=== PATIENT | female | born 1985 | race Caucasian/White ===

== ENCOUNTER 2021-08-28 16:02 | Emergency (ER) | payer MEDICAID, SELFPAY ==
[2021-08-28 16:05] VITALS: BP 129/73; PULSE 74; RESP 18; TEMP 36.6; O2SAT 100
--- NOTE | 2021-08-28 16:19 | ED.GENADUL_ITS ---
Discharge Plan Disposition Patient Disposition: HOME Condition: Stable Discharge Details Clinical Impression: Rash Primary Care Provider: None,None ED Provider: Carl Kat Home Meds and New Rx's Prescriptions: New hydrocortisone 2.5 % cream 1 applic topical TID PRNQty: 30 RF: 0 No Action No Known Home Meds RF: 0 Discharge Instructions Additional Instructions: your rash seems consistent with a irritant or contact dermatitis use the hydrocortisone and follow up with a primary care provider within a week especially if rash continues return to the emergency department if you feel more ill, have severe worsening pain or fevers. Medical Decision Making 36 yo female who denies chronic medical problems comes in with itching rash on both wrists/hands for 2 weeks. 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 The rash was initially red but then became crusted. She denies fevers, severe pain. On both radial surfaced of her wrist and posterior wrist she has mild erythema with some blistering and has no hand lesions. She has mild erythema as well of the left neck that's about 4-5cm in diameter. Her exam is consistent with likely contact or irritant dermatitis. Will start her on topical steroids and have her f/u with pcp. no findings on exam to suggest infectious etiology such as cellulitis. Differential Diagnosis Differential Diagnosis: contact dermatitis, psoriasis HPI General Mode of arrival: ambulatory . Date/Time Provider Initiated Documentation: 08/28/21 16:10 . Limitations to Documentation: no limitations . Information obtained by: patient . History of Present Illness 36 year old F presents to the emergency department with the chief complaint of rash, described as moderate, Patient extremity. Patient started experiencing this week(s) (2) and it has been constant. No relieving factors improve symptom(s), No exacerbating factors reported . Related Data Home Medications Medication Instructions Recorded Confirmed Unknown [No Known Home Meds] 08/28/21 08/28/21 hydrocortisone 1 applic TOPICAL TID PRN #30 g 08/28/21 Previous Rx's Medication Instructions Recorded hydrocortisone 1 applic TOPICAL TID PRN #30 g 08/28/21 Allergies Allergy/AdvReac Type Severity Reaction Status Date / Time Bleach (Sodium Hypochlorite) Allergy Unverified 08/28/21 16:07 General Stated Complaint: RashLesion GERMAN: 4 Review of Systems All systems reviewed & are unremarkable except as noted in HPI and below Constitutional Constitutional: Denies chills, Denies fever(s) and Denies weakness Cardiovascular Cardiovascular: Denies chest pain and Denies dyspnea Respiratory Respiratory: Denies cough and Denies dyspnea Gastrointestinal Gastrointestinal: Denies abdominal pain, Denies nausea and Denies vomiting Musculoskeletal Musculoskeletal: Denies joint swelling Neurologic Neurologic: Denies weakness PFSH All Active Problems (Updated 08/28/21 @ 16:23 by Carl Kat MD) Rash (Acute) Social History Smoking/Tobacco Use Status: Never Smoking risk assessment performed?: Yes Alcohol Intake: never Substance use type: does not use Do you feel safe at home: Yes Do you feel safe in your relationship?: Yes Exam Const General: no acute distress Orientation: alert HENMT Head: normal to inspection Ears: external ears normal General nose exam: external nose normal Mouth: moist mucous membranes Eyes General: appearance normal, both eyes and all related structures Neck Neck: normal visual inspection Resp Effort & Inspection: normal respiratory effort and able to speak in complete sentences Cardio Rate: regular rate Skin General skin exam: elasticity normal Neuro General: patient alert and patient oriented x3 Extrem General: normal to inspection Psych Mental Status: mental status grossly normal Course Vital Signs Vital signs: Vital Signs Temperature 36.6 C 08/28/21 16:05 Pulse 74 08/28/21 16:05 Respiratory Rate 18 08/28/21 16:05 Blood Pressure 129/73 08/28/21 16:05 Pulse Oximetry 100 08/28/21 16:05 Temperature 36.6 C 08/28/21 16:05 Temperature Source Temporal Artery Scan 08/28/21 16:05 Pulse 74 08/28/21 16:05 Respiratory Rate 18 08/28/21 16:05 Respiratory Effort Non-Labored 08/28/21 16:08 Blood Pressure 129/73 08/28/21 16:05 Pulse Oximetry 100 08/28/21 16:05 Pain Level 0 08/28/21 16:05
--- NOTE | 2021-08-28 16:25 | NUR.NOTE ---
Nursing Note:CARE MANAGEMENT GIVEN PT INFO FOR RASH IN A WEEK AND TO ESTABLISH CARE. CHUCHO, ED
== END 2021-08-28 16:45 | disposition home or self-care (01) ==
PROVIDERS: Emergency Provider Emergency Medicine
DX: R21 Rash and other nonspecific skin eruption (principal)
CPT/HCPCS: 99283

== ENCOUNTER 2021-09-03 23:16 | Emergency (ER) | payer MEDICAID, SELFPAY ==
[2021-09-03 23:22] VITALS: BP 122/81; PULSE 76; RESP 18; TEMP 36.3; O2SAT 99
--- NOTE | 2021-09-03 23:34 | ED.GENADUL_ITS ---
Discharge Plan Disposition Patient Disposition: HOME Condition: Stable Discharge Details Clinical Impression: Rash Primary Care Provider: None,None ED Provider: Carl Kat Home Meds and New Rx's Prescriptions: New prednisone 20 mg tablet See Rx Instructions .ROUTE .COMPLEX Qty: 21 RF: 0 Discontinued hydrocortisone 2.5 % cream 1 applic topical TID PRNQty: 30 RF: 0 Discharge Instructions Additional Instructions: continue to take the benadryl as needed for itching, follow dosing instruction on packaging if rash doesn't improve with the steroid follow up with dermatology if you have difficulty breathing, fevers, feel more ill or have lesions in your mouth or lips return to the emergency department for reevaluation Medical Decision Making 36 yo female with hx of ITP comes in with continued rash on arms and now torso. 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 She was prescribed topical hydrocortisone but despite this has continued. She now has mildly red patches on her upper chest, and continues to have red scaly rash on posterior wrists. No fevers, chills, dyspnea, gi symptoms and no mucous membrane lesions. No other household member with similar symptoms so doubt scabies. Her rash does seem consistent with contact dermatitis and vs atopic dermatitis. No findings to suggest anaphylaxis or sjs/ten. No rash over elbow or other joints other than wrist so feel psoriasis is less likely. Will try oral steroids and advised to follow up with derm if symptoms continue, return precautions given Differential Diagnosis Differential Diagnosis: eczema, atopic dermatitis, psoriasis HPI General Mode of arrival: ambulatory . Date/Time Provider Initiated Documentation: 09/03/21 23:17 . Limitations to Documentation: no limitations . Information obtained by: patient . History of Present Illness 36 year old F presents to the emergency department with the chief complaint of rash, described as moderate, and is localized to the left, right and upper extremity. Patient started experiencing this week(s) (3) and it has been constant. No relieving factors improve symptom(s), No exacerbating factors reported . Patient notes denies fever/chills. Related Data Home Medications Medication Instructions Recorded Confirmed prednisone See Rx Instructions .ROUTE 09/03/21 .COMPLEX #21 tab Previous Rx's Medication Instructions Recorded prednisone See Rx Instructions .ROUTE 09/03/21 .COMPLEX #21 tab Allergies Allergy/AdvReac Type Severity Reaction Status Date / Time Bleach (Sodium Hypochlorite) Allergy Unverified 08/28/21 16:07 General Stated Complaint: RashLesion GERMAN: 4 Review of Systems All systems reviewed & are unremarkable except as noted in HPI and below Constitutional Constitutional: Denies chills, Denies fever(s) and Denies weakness Cardiovascular Cardiovascular: Denies chest pain and Denies dyspnea Respiratory Respiratory: Denies cough and Denies dyspnea Gastrointestinal Gastrointestinal: Denies abdominal pain, Denies nausea and Denies vomiting Genitourinary Genitourinary: Denies dysuria Musculoskeletal Musculoskeletal: Denies joint swelling Neurologic Neurologic: Denies weakness PFSH All Active Problems (Updated 09/03/21 @ 23:38 by Carl Kat MD) Rash (Acute) Social History Smoking/Tobacco Use Status: Never Smoking risk assessment performed?: Yes Alcohol Intake: never Drug use: Never Substance use type: does not use Do you feel safe at home: Yes Do you feel safe in your relationship?: Yes Exam Const General: no acute distress Orientation: alert HENMT Head: normal to inspection Ears: external ears normal General nose exam: external nose normal Mouth: moist mucous membranes Eyes General: appearance normal, both eyes and all related structures Neck Neck: normal visual inspection Resp Effort & Inspection: normal respiratory effort and able to speak in complete sentences Cardio Rate: regular rate Skin General skin exam: elasticity normal and dry skin Neuro General: patient alert and patient oriented x3 Extrem General: normal to inspection Psych Mental Status: mental status grossly normal Course Vital Signs Vital signs: Vital Signs Temperature 36.3 C L 09/03/21 23:22 Pulse 76 09/03/21 23:22 Respiratory Rate 18 09/03/21 23:22 Blood Pressure 122/81 09/03/21 23:22 Pulse Oximetry 99 09/03/21 23:22 Temperature 36.3 C L 09/03/21 23:22 Temperature Source Temporal Artery Scan 09/03/21 23:22 Pulse 76 09/03/21 23:22 Respiratory Rate 18 09/03/21 23:22 Respiratory Effort 09/03/21 23:25 Blood Pressure 122/81 09/03/21 23:22 Blood Pressure Position Sitting 09/03/21 23:22 Pulse Oximetry 99 09/03/21 23:22 Oxygen Delivery Method Room Air 09/03/21 23:22 Oxygen Flow Rate 0 09/03/21 23:22 Pain Level 3 09/03/21 23:22
[2021-09-03] MEDS: predniSONE 20 MG TAB 60 MG PO (23:36)
[2021-09-03] MEDS: diphenhydrAMINE 25 MG CAP PO (23:36)
== END 2021-09-03 23:44 | disposition home or self-care (01) ==
PROVIDERS: Emergency Provider Emergency Medicine
DX: R21 Rash and other nonspecific skin eruption (principal)
CPT/HCPCS: 99283; J7512

== ENCOUNTER 2025-06-03 19:25 | Emergency (ER) | payer MEDICAID, SELFPAY ==
[2025-06-03 19:29] VITALS: BP 122/92; PULSE 77; RESP 19; TEMP 36.9; O2SAT 98
[2025-06-03] MEDS: Prochlorperazine 10 MG/2 ML VIAL IVP (20:37)
[2025-06-03] MEDS: Normal Saline 1,000 ML 1000 ML IV (20:37)
[2025-06-03] MEDS: Ketorolac 15 MG/ML VIAL 7.5 MG IVP (20:37)
[2025-06-03] MEDS: Dexamethasone 4 MG/ML VIAL IVP (21:25)
[2025-06-03 21:32] VITALS: BP 122/73; PULSE 72; RESP 19; TEMP 36.3; O2SAT 97
--- NOTE | 2025-06-03 21:53 | ED.GENADUL_ITS ---
Discharge Plan Disposition Patient Disposition: Home Condition: Stable Discharge Details Clinical Impression: Headache Primary Care Provider: None,None ED Provider: Gretel Bill Home Meds and New Rx's Prescriptions: New prochlorperazine maleate [Compazine] 10 mg tablet 10 mg PO Q6H PRNQty: 10 0RF Continued prednisone 20 mg tablet See Rx Instructions .ROUTE .COMPLEX Qty: 21 0RF Rx Instructions: 60mg daily for days 1-4, 40mg days 5-7, 20mg days 8-10 ibuprofen 800 mg tablet 800 mg PO Q8H PRN Discharge Instructions Instructions: Headache, Adult ED Additional Instructions: Please take Motrin and Tylenol as needed for headache The Compazine can help with migraine headaches, it is typically used for nausea and vomiting but can work really well for headaches Please return should you develop return of headache worsening symptoms, fever, chills, or should any new concerns arise Discharge Data Discharge Date/Time-TO BE ENTERED AT DEPARTURE: 06/03/25 21:33 HPI General Date/Time Provider Initiated Documentation: 06/03/25 19:27 . HPI Narrative: This 40-year-old female with history of migraine headaches presents with report of headache which started 24 hours prior to arrival. She states typically her headaches resolved with ibuprofen and Tylenol. She denies any fever chills or stiff neck. She denies any strength or sensation changes to her extremities. She states that headache wraps around her head denies any visual changes. Does have photophobia and phonophobia. Has attempted Motrin and Tylenol at home per patient. Denies any chance of . Denies any recent head injury. Related Data Home Medications ?Medication ?Instructions ?Recorded ?Confirmed prednisone 20 mg tablet See Rx Instructions .Route 1 11/04/20 06/03/25 .COMPLEX #21 tabs ibuprofen 800 mg tablet 800 mg PO Q8H PRN 06/03/25 0 06/03/25 prochlorperazine maleate 10 mg 10 mg PO Q6H PRN #10 ta bs 06/03/25 tablet (Compazine) Previous Rx's ?Medication ?Instructions ?Recorded prednisone 20 mg tablet See Rx Instructions .Route 1 11/04/20 .COMPLEX #21 tabs prochlorperazine maleate 10 mg 10 mg PO Q6H PRN #10 ta bs 09/26/25 tablet (Compazine) Allergies Allergy/AdvReac Type Severity Reaction Status Date / Time Bleach (Sodium Hypochlorite) Allergy Unverified 08/28/21 16:07 General Stated Complaint: HeadInjury GERMAN: 3 Exam Narrative Exam Narrative: Alert and oriented 40-year-old female in no acute distress pupils equal round reactive to light and accommodation no meningismus. And there is visual intact ambulatory with steady gait Course Vital Signs Vital signs: Vital Signs Temperature 36.9 C 06/03/25 19:29 Pulse 77 06/03/25 19:29 Respiratory Rate 19 06/03/25 19:29 Blood Pressure 122/92 H 06/03/25 19:29 Pulse Oximetry 98 06/03/25 19:29 Temperature 36.3 C L 06/03/25 21:32 Temperature Source Oral 06/03/25 19:29 Pulse 72 06/03/25 21:32 Respiratory Rate 06/03/25 21:32 Respiratory Effort Normal, Non-Labored 06/03/25 19:39 Respiratory Depth Normal 06/03/25 19:39 Respiratory Pattern Normal 06/03/25 19:39 Blood Pressure 122/73 06/03/25 21:32 Blood Pressure Position Sitting 06/03/25 19:29 Pulse Oximetry 97 06/03/25 21:32 Oxygen Delivery Method Room Air 06/03/25 19:29 Oxygen Flow Rate 0 06/03/25 19:29 Pain Level 2 06/03/25 21:32 Medical Decision Making Assessment and plan: Patient has a history of migraine headaches this is consistent with prior, she responded well to Compazine and fluids and Toradol and she is requesting discharge home. She was given Compazine for home. She w as given a single dose of 4 mg of Decadron to prevent recurrence of headache discharged home without any findings consistent with meningitis or other significant neurological issues. Return precautions reviewed and patient expressed understanding PFSH All Active Problems (Updated 06/03/25 @ 21:06 by LAKSHMI Castro) Headache (Acute) Social History Smoking/Tobacco Use Status: Never Smoking risk assessment performed?: Yes Alcohol Intake: never Drug use: Never Substance use type: does not use Housing: apartment Do you feel safe at home: Yes Do you feel safe in your relationship?: Yes
== END 2025-06-03 21:33 | disposition home or self-care (01) ==
PROVIDERS: Emergency Provider Physician Assistant
DX: R51.9 Headache, unspecified (principal)
CPT/HCPCS: 96361; 96374; 96375; 99284; 99283; J0780; J1100; J1885